=== PATIENT | female | born 1965 | race Caucasian/White ===

== ENCOUNTER 2017-02-20 08:14 | Day surgery (SDC) | payer OTHER ==
[2017-02-20] MEDS ORDERED: LACTATED RINGERS 1,000 ML IV ONE (08:45)
[2017-02-20] MEDS ORDERED: MIDAZOLAM 2 MG/2 ML VIAL IVP ONE (09:44)
[2017-02-20] MEDS ORDERED: fentaNYL 100 MCG/2 ML VIAL IVP ONE (09:44)
--- NOTE | 2017-02-20 09:45 | HISTORY & PHYSICAL EXAMINATION ---
HPI - History of Present Illness HPI Comment/Other: Visit Type: Initial Consult Referring Provider: SARANYA Bowles History of Present Illness: Patient is here today for a colonoscopy consult, first one....................................................................Adama Garcia MA January 06, 2017 4:00 PM This is a pleasant 51 year old female who presents for surveillance colonoscopy referred by Dr. Bowles. She experiences normal bowel movements, denies constipation and is otherwise in good health. She denies history of nausea or vomiting, denies change in his bowel habits, denies bloody stools. She has no family history of colon cancer. Her father had polyps but she is unsure of the type or his age at diagnosis. Current Meds: * CPAP MACHINE AND SUPPLIES Dx: obstructive sleep apnea, G47.33, length of need - 99 months, pressure of 8cm of water ZYRTEC ALLERGY 10 MG ORAL CAPS (CETIRIZINE HCL) AMBIEN 5 MG TABS (ZOLPIDEM TARTRATE) Take one tablet by mouth at bedtime as needed for insomnia WELLBUTRIN SR 100 MG ORAL [id number] (BUPROPION HCL) Take one tablet by mouth daily. IMITREX 100 MG TABS (SUMATRIPTAN SUCCINATE) Take one tablet by mouth as needed for migraine, may repeat one tablet more in two hours if needed, maximum dose two daily VENLAFAXINE HCL ER 75 MG ORAL [id number] (VENLAFAXINE HCL) Take one tablet by mouth daily. LEVOTHYROXINE SODIUM 125 MCG TABS (LEVOTHYROXINE SODIUM) Take one tablet by mouth daily LEVOTHYROXINE SODIUM 100 MCG TABS (LEVOTHYROXINE SODIUM) Take one tablet by mouth every other day. PROPRANOLOL HCL ER 80 MG ORAL [id number] (PROPRANOLOL HCL) Take one capsule by mouth daily. Past Medical History: Reviewed history from 07/04/2016 and no changes required: Chronic headaches/migraines CORBIN - on CPAP Hiatal Hernia Past Surgical History: Reviewed history from 07/04/2016 and no changes required: T&A - age 16 Lap appy 2004 Umbilical herniorraphy w/ mesh 2004 Denies surgical or anesthesia complications Cholecystectomy Family History Summary: Reviewed history and no changes required: 01/06/2017 Mother (rian.) - Has a mother - Entered On: 07/04/2016 General Comments - FH: Mom: prescription drug abuse, alcoholism, migraines - in 70's of pulmonary fibrosis 2/2 GERD Dad: HTN, nephrolithiasis, in 80's of complications from long-term HTN 1/2 siblings MGM: DM w/ vascular complications 2 children: son: palpitations son: red dye allergy (urticaria) Social History: Reviewed history from 07/04/2016 and no changes required: 2 children - one in [place], one lives w/ pt Moved to [facility] in 2016 from [place], [place] for job w/ [employer] at [employer] - [facility] Nonsmoker EtOH: 1 glass 2-3x/week No prior IV drug use Risk Factors: Smoked Tobacco Use: Never smoker Smokeless Tobacco Use: Never Passive smoke exposure: no Drug use: no Caffeine use: 2 drinks per day Alcohol use: yes Drinks per day: social Exercise: no Seatbelt use: 100 % Sun Exposure: occasionally Review of Systems See HPI Physical Exam General: well developed, well nourished, in no acute distress Lungs: clear bilaterally to A & P Heart: regular rate and rhythm, S1, S2 without murmurs, rubs, gallops, or clicks Abdomen: Probable bulge in the epigastric region near her epigastric port site scar. Unable to reduce. Unable to palpate fascial defect. Pulses: pulses normal in all 4 extremities Extremities: no clubbing, cyanosis, edema, or deformity noted with normal full range of motion of all joints Cervical Nodes: no significant adenopathy Psych: alert and cooperative; normal mood and affect; normal attention span and concentration Impression & Recommendations: Problem # 1: Screening for colon cancer I have explained the colonoscopy procedure to the patient in detail and the risks involved, including but not limited to bleeding, perforated viscus and missing lesions. The patient understands the above and has agreed to proceed with the procedure. Colon prep instructions and prescription provided. Approximately 20 minutes spent in preparing the patient; all Questions and concerns were addressed. PMH/PSH - Past Medical History Cardiovascular: positive: None Respiratory: positive: Sleep apnea, CPAP use Endocrine/Autoimmune: positive: HyPOthyroidism GI: positive: None : positive: Kidney stones HEENT: positive: None Musculoskeletal: positive: None Derm: positive: None MRSA Hx?: No - Past Surgical History General: positive: Cholecystectomy Social & Family Hx - Social History ETOH Use: Beer Meds/Allgy - Home Medications Home Medications: Ambulatory Orders Medication Instructions Recorded Confirmed Cetirizine [ZyrTEC] 10 mg PO DAILY 02/20/17 02/20/17 Levothyroxine [Synthroid] 125 mcg PO QDAC 02/20/17 02/20/17 Propranolol ER [Inderal LA] 80 mg PO DAILY 02/20/17 02/20/17 Sumatriptan Succinate [Imitrex] 100 mg PO PRN PRN 02/20/17 02/20/17 Venlafaxine ER [Effexor ER] 75 mg PO DAILY 02/20/17 02/20/17 Zolpidem [Ambien] 5 mg PO HS 02/20/17 02/20/17 buPROPion [Wellbutrin Sr] 100 mg PO DAILY 02/20/17 02/20/17 - Allergies Allergies/Adverse Reactions: Allergies Allergy/AdvReac Type Severity Reaction Status Date / Time codeine Allergy Rash Verified 02/20/17 08:24 Penicillins Allergy Rash Verified 02/20/17 08:23 red dye Allergy Rash Verified 02/20/17 08:24 Exam - Vital Signs Vital Signs: Vital Signs x48h Temp Pulse Resp BP Pulse Ox 02/20/17 08:21 36.3 C L 60 20 128/75 99
[2017-02-20 10:50] VITALS: BP 110/60
== END 2017-02-20 08:15 | disposition home or self-care (01) ==
LOC: SDS 08:14
PROVIDERS: ATTEND Surgery
PROC: 0DJD8ZZ Inspection of Lower Intestinal Tract, Via Natural or Artificial Opening Endoscopic (ICD-10-PCS; principal; 2017-02-20 09:15)
DX: Z12.11 Encounter for screening for malignant neoplasm of colon (principal); K64.8 Other hemorrhoids; F41.9 Anxiety disorder, unspecified; G47.33 Obstructive sleep apnea (adult) (pediatric); G43.909 Migraine, unspecified, not intractable, without status migrainosus; Z90.49 Acquired absence of other specified parts of digestive tract; Z81.1 Family history of alcohol abuse and dependence; Z82.49 Family history of ischemic heart disease and other diseases of the circulatory system; Z83.3 Family history of diabetes mellitus; Z88.0 Allergy status to penicillin
CPT/HCPCS: 45378; J7120

== ENCOUNTER 2017-10-04 12:17 | Outpatient (CLI) | payer OTHER ==
[2017-10-04 13:30] LABS: ALBUMIN 3.8 g/dL (3.2-5.5); ALBUMIN/GLOBULIN RATIO 1.1 (1.0-2.2); ALKALINE PHOSPHATASE 65 IU/L (42-121); ALT ALANINE AMINOTRANSFERASE 23 IU/L (10-60); AST ASPARTATE AMINOTRANSFERASE 26 IU/L (10-42); BILIRUBIN,TOTAL 0.2 mg/dL (0.2-1.0); BUN - BLOOD UREA NITROGEN 13 mg/dL (6-20); CALCIUM 8.6 mg/dL (8.5-10.3); CARBON DIOXIDE - CO2 26 mmol/L (21-32); CHLORIDE 107 mmol/L (101-111); CHOL/HDL RATIO 3.7 (<4.4); CHOLESTEROL 202 mg/dL; CREATININE 0.5 mg/dL (0.4-1.0); GFR - MDRD 130 (>89); GLUCOSE 110 mg/dL (70-100); HDL CHOLESTEROL 55 mg/dL; LDL CHOLESTEROL,CALCULATED 127 mg/dL; LDL/HDL RATIO 2.3 (<4.4); SODIUM 139 mmol/L (135-145); TOTAL PROTEIN 7.2 g/dL (6.7-8.2); VLDL CHOLESTEROL 20 mg/dL
== END 2017-10-04 12:18 | disposition home or self-care (01) ==
LOC: LAB.WCP 12:17
PROVIDERS: ATTEND Physician Assistant Medical
DX: Z00.00 Encounter for general adult medical examination without abnormal findings (principal); Z51.81 Encounter for therapeutic drug level monitoring; E03.9 Hypothyroidism, unspecified; E66.9 Obesity, unspecified
CPT/HCPCS: 36415; 80053; 80061; 83721; 84443